=== PATIENT | female | born 1995 | race American Indian/Alaskan Native ===

== ENCOUNTER 2016-11-08 19:28 | Emergency (ER) | payer MEDICAID ==
--- NOTE | 2016-11-08 23:01 | Emergency Department Report ---
Suture/Staple Removal - HPI Chief Complaint: Laceration/Recheck/Suture Stated Complaint: STICH REMOVAL Time Seen by Provider: 11/08/16 22:30 When Sutures or [place] Placed: 5-7 Days Ago (patient states that she had sutures placed by another facility 7 days ago. Patient states that her dog bit her upper lip. Patient was placed on antibiotics and had sutures placed in right upper lip. Patient has been putting bandages over the wound and believes that it is causing some irritation to the surrounding tissue.) Wound Location: right upper lip ED Review of Systems ROS: Stated complaint: STICH REMOVAL Other details as noted in HPI Constitutional: denies: chills, fever Eyes: denies: eye pain, eye discharge, vision change ENT: denies: ear pain, throat pain Respiratory: denies: cough, shortness of breath, wheezing Cardiovascular: denies: chest pain, palpitations Endocrine: no symptoms reported Gastrointestinal: denies: abdominal pain, nausea, diarrhea Genitourinary: denies: urgency, dysuria, discharge Musculoskeletal: denies: back pain, joint swelling, arthralgia Skin: denies: rash, lesions Neurological: denies: headache, weakness, paresthesias Psychiatric: denies: anxiety, depression Hematological/Lymphatic: denies: easy bleeding, easy bruising ED Past Medical Hx - Past Medical History Previous Medical History?: Yes Additional medical history: Eczema - Surgical History Past Surgical History?: No - Social History Smoking Status: Never Smoker Substance Use Type: None - Medications Home Medications: Home Medications Medication Instructions Recorded Confirmed Last Taken Type Tablet 1 tab PO DAILY 11/08/16 11/08/16 Unknown History Suture Removal Exam - Exam General: Vital signs noted. No distress. Alert and acting appropriately. Laceration repair noted to right upper outer lip. 5 simple interrupted Prolene skin sutures noted to right upper lip. Wound is mildly tender. Wound has some areas of intervention noted crossing the vermilion border. Wound: Yes Tenderness, No Pathologic Erythema, No Drainage, No Pus, No Wound Dehiscence Other Systems: All other systems reviewed and are unremarkable. ED Course Vital Signs 11/08/16 20:13 Temperature 98.1 F Pulse Rate 87 Respiratory 14 Rate Blood Pressure 105/65 Blood Pressure 105/65 [Left] O2 Sat by Pulse 100 Oximetry ED Recheck MDM - Differential Diagnosis Wound Recheck, Suture/Staple Removal - Medical Decision Making Applied normal saline soaked gauze to upper lip to soften the scabbed area. Remove scab with soft manipulation. Removed all the sutures with minimal difficulty. Patient tolerated procedure very well without any complications. From the look of the remaining wound, I suspect patient may have high risk of scarring. I will refer patient to plastic surgeon for further evaluation of her wound. I have instructed patient to avoid continuous sinus exposure to the area and to start applying some OTC Miderma to the area. Patient is in agreement with treatment plan patient is stable for discharge. Critical care attestation.: If time is entered above; I have spent that time in minutes in the direct care of this critically ill patient, excluding procedure time. ED Disposition Clinical Impression: Encounter for removal of sutures Disposition: DISCHARGED TO HOME OR SELFCARE Is pt being admited?: No Does the pt Need Aspirin: No Condition: Good Instructions: Suture Care (ED), Laceration (ED) Referrals: PRIMARY CARE, [Primary Care Provider] - 3-5 Days PAULA VICTORIA MD [Staff Physician] - 3-5 Days (Plastic surgeon for wound care) Time of Disposition: 23:04
[2016-11-09 06:53] VITALS: BP 114/74
== END 2016-11-08 23:15 | disposition home or self-care (01) ==
LOC: ED 19:28
DX: S01.511D Laceration without foreign body of lip, subsequent encounter (principal)